=== PATIENT | female | born 1985 | race African-American/Black ===

== ENCOUNTER 2019-11-14 14:56 | Inpatient (IN) | payer OTHER ==
[2019-11-14] MEDS ORDERED: OXYTOCIN 30 UNITS in 0.9% NS 30 UNIT/500 ML INFUS.BAG IVPB SCH (15:45)
--- NOTE | 2019-11-14 15:45 | HP ---
Past Medical History - Primary Care Physician PCP:: Magaly Aldana - Admission Chief Complaint: contractions History of Present Illness: pt. presented yesterday to L&D for labor eval (contractions). not in active labor and d/c to . sent by MD today for augmentation. pt. states still some uc's. spotting 2 d ago. no rom. no lesions or prodrome (hx hsv). History Source: Patient Limitations to Obtaining History: No Limitations - Past Surgical History Hx Myomectomy: No Hx Transabdominal Cerclage: No - Smoking History Smoking history: Never smoked - Alcohol/Substance Use Hx Alcohol Use: Yes (SOCIAL) Home Medications - Allergies Allergies/Adverse Reactions: Allergies Allergy/AdvReac Type Severity Reaction Status Date / Time nut - unspecified Allergy Intermediate Itching Verified 11/14/19 16:35 peanut Allergy Intermediate Itching Verified 11/14/19 16:35 No Known Drug Allergies Allergy Verified 11/14/19 16:35 - Home Medications Home Medications: Ambulatory Orders Vitamins (Sjr) - 1 tab PO DAILY 11/14/19 Review of Systems Findings/Remarks: as per HPI Physical Exam - Maternity Constitutional: Yes: Well Nourished, No Distress Cardiovascular: Yes: WNL Lungs: Clear to auscultation - Abdominal Exam/OB Number of Fetuses: Single Presentation: Vertex (exam, etc per PMD) Contractions: Yes Regularity: Irregular Intensity: Mild Monitor Mode: External Heart Rate (range): 135 Category: I Accelerations: Uniform Decelerations: None - Vaginal Exam/OB Dilatation (cm): 2-3 Presentation: Vertex/Position - Labs Lab Results: A pos vdrl nr hbsag nr hiv neg gc neg chl neg rubella immune gbs neg Hemorrhage Risk Assessment - Risk Factors Medium Risk Factors: Yes: None High Risk Factors: Yes: None Risk Score: 1 Risk Level: Medium Risk Assessment/Plan called by Dr. Aldana to cover Pitocin for this P1 iup at 39 weeks presents for admission per PMD to augment labor w Pitocin per H&P hx hsv, pt denies any lesions or prodromal symptoms currently. efw 3332g on sono 10/23. ant. placenta (pt. states was low lying earlier this preg but resolved) close monitoring on L&D while on pitocin analgesia prn mgmt per Dr. Aldana
[2019-11-14] MEDS: DEXTROSE 5%-LACTATED RINGERS 1,000 ML IV SCH (16:00)
[2019-11-14] MEDS ORDERED: OXYTOCIN 30 UNITS in 0.9% NS 30 UNIT/500 ML INFUS.BAG IVPB ONE (16:10)
[2019-11-14] MEDS ORDERED: CITRIC ACID/SODIUM CITRATE 30 ML UNIT-DOSE CUP PO ONE (16:25)
--- NOTE | 2019-11-14 16:25 | PN ---
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
[2019-11-14 16:31] LABS: BASO % 0.3 % (0-2.0); EOS % 0.1 % (0-4.5); HEMOGLOBIN 12.5 GM/dL (10.7-15.3); LYMPH % 11.2 % (8-40); MCH 27.5 pg (25.7-33.7); MCHC 33.7 g/dl (32.0-36.0); MEAN CELL VOLUME 81.5 fl (80-96); MONO % 5.3 % (3.8-10.2); NEUT % 83.1 % (42.8-82.8); PLATELET COUNT 269 K/MM3 (134-434); RBC 4.54 M/mm3 (3.60-5.2); RDW 15.5 % (11.6-15.6)
[2019-11-14] MEDS ORDERED: BUTORPHANOL TARTRATE 2 MG/ML VIAL IVPB ONE (16:34)
[2019-11-14] MEDS ORDERED: PROMETHAZINE HCL 25 MG/1 ML VIAL IVPB ONE (16:34)
[2019-11-14 16:40] LABS: PROTHROMBIN TIME (PATIENT) 11.8 SEC (9.7-13.0)
--- OUTSIDE RECORDS SUMMARY | 2019-11-14 16:42 | XMS ---
:1985 Author Organization [facility] Care Team Providers Name Role Phone BLANCO, AGUSTIN MD Unavailable Unavailable BLANCO, AGUSTIN MD Unavailable Unavailable BLANCO, AGUSTIN MD Unavailable Unavailable BLANCO, AGUSTIN MD Unavailable Unavailable BLANCO, AGUSTIN MD Unavailable Unavailable BLANCO, AGUSTIN MD Unavailable Unavailable BLANCO, AGUSTIN MD Unavailable Unavailable BLANCO, AGUSTIN MD Unavailable Unavailable BLANCO, AGUSTIN MD Unavailable Unavailable BLANCO, AGUSTIN MD Unavailable Unavailable BLANCO, AGUSTIN MD Unavailable Unavailable BLANCO, AGUSTIN MD Unavailable Unavailable BLANCO, AGUSTIN MD Unavailable Unavailable BLANCO, AGUSTIN MD Unavailable Unavailable BLANCO, AGUSTIN MD Unavailable Unavailable BLANCO, AGUSTIN MD Unavailable Unavailable BLANCO, AGUSTIN MD Unavailable Unavailable BLANCO, AGUSTIN MD Unavailable Unavailable BLANCO, AGUSTIN MD Unavailable Unavailable BLANCO, AGSUTIN MD Unavailable Unavailable BLANCO, AGUSTIN MD Unavailable Unavailable BLANCO, AGUSTIN MD Unavailable Unavailable BLANCO, AGUSTIN MD Unavailable Unavailable BLANCO, AGUSTIN MD Unavailable Unavailable JHONNY DEMARCO Unavailable Unavailable JORDI CONNELLY Unavailable Unavailable Re-disclosure Warning The records that you are about to access may contain information from federally- assisted alcohol or drug abuse programs. If such information is present, then the following federally mandated warning applies: This information has been disclosed to you from records protected by federal confidentiality rules (42 CFR part 2). The federal rules prohibit you from making any further disclosure of this information unless further disclosure is expressly permitted by the written consent of the person to whom it pertains or as otherwise permitted by 42 CFR part 2. A general authorization for the release of medical or other information is NOT sufficient for this purpose. The Federal rules restrict any use of the information to criminally investigate or prosecute any alcohol or drug abuse patient.The records that you are about to access may contain highly sensitive health information, the redisclosure of which is protected by Article 27-F of the [facility] Public Health law. If you continue you may haveaccess to information: Regarding HIV / AIDS; Provided by facilities licensed or operated by the [facility] Office of Mental Health; or Provided by the [facility] Office for People With Developmental Disabilities. If such information is present, then the following [facility] mandated warning applies: This information has been disclosed to you from confidential records which are protected by state law. State law prohibits you from making any further disclosure of this information without the specific written consent of the person to whom it pertains, or as otherwise permitted by law. Any unauthorized further disclosure in violation of state law may result in a fine or mcfp sentence or both. A general authorization for the release of medical or other information is NOT sufficient authorization for further disclosure. Allergies and Adverse Reactions Type Description Substance Reaction Status Data Source(s ) Food allergy nut - unspecified nut - unspecified UNKNOWN [facility] Encounters Encounter Providers Location Date Indications Data Source(s ) Outpatient Attender: AGUSTIN 09/25/2019 LABOR EVAL [facility] BLANCO RICE 10:40:00 AM Hospital EDT LABOR EVAL Emergency Attender: NILAM 11/21[facility]2018 [facility]40[facility] [employer] CHEST PAIN Emergency Attender: MARICEL, 07/14/2018 [facility], 08[facility]00 PM [facility]T [facility] [employer] ABDOMINAL PAIN, Insurance Providers Payer name Policy type Policy ID Covered Covered libertarian's Policy P arabella / Coverage libertarian ID relationship to Main Inf ormation type main [facility] [id number] SP [id number] CARE HMO/POS/EPO [place] [id number] PT [id number] HEALTHCARE HMO Problems, Conditions, and Diagnoses Code Display Name Description Problem Type Effective Data Sour ce(s) Dates Z33.1 state, Z33.1 Diagnosis 09/25/2019 [facility] incidental 10:40:00 AM Hospital EDT Z91.018 Allergy to other ALLERGY TO OTHER Diagnosis 11/21/2018 [facility] [employer] 07:40:00 PM [facility] EDT [facility] [employer] R07.2 Precordial pain PRECORDIAL PAIN Diagnosis 11/21/2018 [place] 07:40:00 PM [facility] EDT [facility] K52.9 Noninfective NONINFECTIVE Diagnosis 07/14/2018 [facility] r gastroenteritis and GASTROENTERITIS AND 08:14:0 0 PM [facility] colitis, COLITIS, EDT Care unspecified UNSPECIFIED Corporation R19.7 Diarrhea, DIARRHEA, Diagnosis 07/14/2018 [place] unspecified UNSPECIFIED 08:14:00 PM Pending sale to [facility] EDT [facility] Results ID Date Data Source [id number] 08/22/2019 08:45:00 AM EDT [facility] Name Value Range Interpretation Description Data Sup porting Code Source(s) Document(s ) SARS [facility] coronavirus 2 RNA [Presence] in Respiratory specimen by EVIN with probe detection This lab was ordered by [facility] and reported by [facility]. Procedure
[2019-11-14 16:43] LABS: ACTIVATED PTT 26.3 SECONDS (25.2-36.5)
[2019-11-14 16:53] VITALS: BMI 29.5
[2019-11-14 16:57] LABS: BLOOD UREA NITROGEN 5.8 mg/dL (7-18); CALCIUM 9.1 mg/dL (8.5-10.1); CREATININE 0.7 mg/dL (0.55-1.3); POTASSIUM 3.8 mmol/L (3.5-5.1)
[2019-11-14] MEDS ORDERED: BUTORPHANOL TARTRATE 2 MG/ML VIAL ONE (19:29)
[2019-11-14] MEDS ORDERED: PROMETHAZINE HCL 25 MG/1 ML VIAL ONE (19:29)
[2019-11-14] MEDS ORDERED: OXYTOCIN 20 UNITS in 0.9% NS 20 UNIT/1,000 ML INFUS.BAG IV ONE ×2 (21:16→22:50)
[2019-11-14] MEDS ORDERED: LIDOCAINE HCL 1% PRESERVATIVE FREE - 30ML VIAL ONE (21:16)
--- NOTE | 2019-11-14 21:24 | PN ---
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
[2019-11-14] MEDS ORDERED: METHYLERGONOVINE MALEATE 0.2 MG/1 ML AMP IM PRN (22:02)
[2019-11-14] MEDS ORDERED: BISACODYL 10 MG SUPP.RECT RC PRN (22:02)
--- NOTE | 2019-11-14 22:02 | PN ---
Delivery - Delivery Vaginal Delivery: No Problems Type of Anesthesia: Local Episiotomy/Laceration: Right Mediolateral EBL (cc): 400 Delivery, Single - Stages of Labor Placenta: Yes: Spontaneous - Condition of Top Dyeing Machine Tender/[place] Machine Feeder Present: No Infant Gender: Male Position: OA - Feeding Plan Initial Plan: Elected not to breastfeed exclusively throughout hospitalization Remarks - Remarks Remarks: RML performed Baby boy CAN x 1 loose Cord gases and blood collected Placenta and memb complete 2-0 chromic used to repair the episiotomy
[2019-11-14] MEDS ORDERED: WITCH HAZEL 50% (TUCKS) 40 PAD/JAR PAD TP SCH (22:15)
[2019-11-14] MEDS ORDERED: OXYTOCIN 20 UNITS in 0.9% NS 20 UNIT/1,000 ML INFUS.BAG IV SCH (22:15)
[2019-11-14] MEDS ORDERED: BENZOCAINE 28 GM HEMORRHOIDAL OINTMENT TP SCH (22:15)
[2019-11-14 23:04] LABS: CORD BASE EXCESS -5.4 mmol/L (0-2); CORD HCO3 20.9 mmHg (20-29); CORD PCO2 43.5 mmHg (30-78); CORD pH 7.299 (7.14-7.44)
[2019-11-14 23:05] LABS: CORD BASE EXCESS -8.4 mmol/L (0-2); CORD HCO3 20.1 mmHg (20-29); CORD PCO2 53.4 mmHg (30-78); CORD pH 7.193 (7.14-7.44)
[2019-11-15] MEDS: IBUPROFEN 600 MG TABLET (FP) PO PRN ×2 (02:47→19:24)
[2019-11-15] MEDS: ACETAMINOPHEN 325 MG TABLET (FP) PO PRN ×2 (02:47→19:25)
[2019-11-15] MEDS: BENZOCAINE 20% 57 GM BOTTLE TP SCH (02:48)
[2019-11-15 08:41] LABS: BASO % 0.2 % (0-2.0); EOS % 0.1 % (0-4.5); HEMATOCRIT 34.1 % (32.4-45.2); HEMOGLOBIN 11.5 GM/dL (10.7-15.3); LYMPH % 10.4 % (8-40); MCH 27.7 pg (25.7-33.7); MCHC 33.7 g/dl (32.0-36.0); MEAN CELL VOLUME 82.2 fl (80-96); MEAN PLT VOLUME 8.7 fl (7.5-11.1); MONO % 5.4 % (3.8-10.2); NEUT % 83.9 % (42.8-82.8); PLATELET COUNT 241 K/MM3 (134-434); RBC 4.15 M/mm3 (3.60-5.2); RDW 15.5 % (11.6-15.6); WHITE BLOOD COUNT 16.4 K/mm3 (4.0-10.0)
--- NOTE | 2019-11-15 17:55 | PN ---
Post Progress Note Type of Delivery: Vital Signs: Vital Signs Temperature 97.0 F L 11/15/19 14:00 Pulse Rate 97 H 11/15/19 14:00 Respiratory Rate 20 11/15/19 14:00 Blood Pressure 107/62 11/15/19 14:00 O2 Sat by Pulse Oximetry (%) 99 11/15/19 14:00 Breast Exam: Yes: Soft Uterus: Yes: Fundus Firm, Fundus below umbilicus Abdomen/GI: Yes: Abdomen soft Lochia: Yes: Rubra Lochia, amount: Small Perineum: Yes: Episiotomy Activity: Ambulating - Labs Labs: CBC WBC 16.4 K/mm3 (4.0-10.0) H 11/15/19 07:45 RBC 4.15 M/mm3 (3.60-5.2) 11/15/19 07:45 Hgb 11.5 GM/dL (10.7-15.3) 11/15/19 07:45 Hct 34.1 % (32.4-45.2) 11/15/19 07:45 MCV 82.2 fl (80-96) 11/15/19 07:45 MCH 27.7 pg (25.7-33.7) 11/15/19 07:45 MCHC 33.7 g/dl (32.0-36.0) 11/15/19 07:45 RDW 15.5 % (11.6-15.6) 11/15/19 07:45 Plt Count 241 K/MM3 (134-434) 11/15/19 07:45 MPV 8.7 fl (7.5-11.1) 11/15/19 07:45 Absolute Neuts (auto) 13.8 K/mm3 (1.5-8.0) H 11/15/19 07:45 Neutrophils % 83.9 % (42.8-82.8) H 11/15/19 07:45 Lymphocytes % 10.4 % (8-40) 11/15/19 07:45 Monocytes % 5.4 % (3.8-10.2) 11/15/19 07:45 Eosinophils % 0.1 % (0-4.5) 11/15/19 07:45 Basophils % 0.2 % (0-2.0) 11/15/19 07:45 Nucleated RBC % 0 % (0-0) 11/15/19 07:45 Problem List - Problems (1) (normal spontaneous vaginal delivery) Code(s): O80 - ENCOUNTER FOR FULL-TERM UNCOMPLICATED DELIVERY (2) with 38 completed weeks gestation Code(s): Z3A.38 - 38 WEEKS GESTATION OF Assessment/Plan Ambulate Breast feeding
--- NOTE | 2019-11-15 18:00 | DS ---
Physical Exam-CARDIAC TECHNICIAN Vital Signs: Vital Signs Temperature 97.0 F L 11/15/19 14:00 Pulse Rate 97 H 11/15/19 14:00 Respiratory Rate 20 11/15/19 14:00 Blood Pressure 107/62 11/15/19 14:00 O2 Sat by Pulse Oximetry (%) 99 11/15/19 14:00 Constitutional: Yes: Well Nourished, No Distress Eyes: Yes: WNL HENT: Yes: WNL Neck: Yes: WNL Cardiovascular: Yes: WNL Respiratory: Yes: WNL Gastrointestinal: Yes: WNL ...Rectal Exam: Yes: WNL Renal/: Yes: WNL Pelvis: Yes: WNL ....Post : Yes: Uterus firm, Slight lochia rubra Breast(s): Yes: WNL Edema: No Integumentary: Yes: WNL Neurological: Yes: WNL ...Motor Strength: WNL Psychiatric: Yes: WNL Labs: CBC, BMP 11/15/19 07:45 11/14/19 16:00 Delivery - Delivery Vaginal Delivery: No Problems, Spontaneous Type of Anesthesia: Local Episiotomy/Laceration: Right Mediolateral EBL (cc): 400 Delivery, Single - Stages of Labor Date 1st Stage Initiatied: 11/14/19 Time 1st Stage Initiated: 19:35 Date 2nd Stage Initiated: 11/14/19 Time 2nd Stage Initiated: 21:15 Date of Delivery: 11/14/19 Time of Delivery: 21:33 Time Placenta Delivered: 21:48 Placenta: Yes: Spontaneous - Condition of Infant Bakery Worker Conveyor Line/Foxing Cutting Machine Operator Present: No Infant Gender: Male Weight: 3.714 kg Position: OA Total Hours ROM (Hrs/Mins): 18 MINUTES - 1 Minute Total Score: 9 5 Minutes Total Score: 9 - [place] Feeding Plan Initial Plan: Elected not to breastfeed exclusively throughout hospitalization Discharge Summary Problems reviewed: Yes Reason For Visit: INDUCTION OF LABOR Current Active Problems (normal spontaneous vaginal delivery) (Acute) Hospital Course: good Plan of Treatment: d/c home tomorrow Condition: Good - Instructions Diet, Activity, Other Instructions: as tolerated regular diet f/u in 4-6 weeks Disposition: HOME - Home Medications Comprehensive Discharge Medication List: Ambulatory Orders Vitamins (Sjr) - 1 tab PO DAILY 11/14/19
[2019-11-15] MEDS: DEXTROSE 5%-LACTATED RINGERS 1,000 ML IV SCH (22:41)
[2019-11-16] MEDS: ACETAMINOPHEN 325 MG TABLET (FP) PO PRN (09:15)
[2019-11-16] MEDS: IBUPROFEN 600 MG TABLET (FP) PO PRN (09:15)
[2019-11-16] MEDS: BENZOCAINE 20% 57 GM BOTTLE TP SCH (09:26)
[2019-11-16 12:04] VITALS: BP 103/70; PULSE 71; TEMP 97.8
== END 2019-11-16 12:31 | disposition home or self-care (01) | DRG 807 ==
LOC: JLDR 14:56 → J3W 11-15 00:22
PROVIDERS: ADMIT Obstetrics & Gynecology; ATTEND Obstetrics & Gynecology
PROC: 10E0XZZ Delivery of Products of Conception, External Approach (ICD-10-PCS; principal; 2019-11-14)
DX: O69.81X0 Labor and delivery complicated by cord around neck, without compression, not applicable or unspecified (principal); Z37.0 Single live birth; O70.9 Perineal laceration during delivery, unspecified; Z3A.38 38 weeks gestation of pregnancy; Z86.19 Personal history of other infectious and parasitic diseases; Z91.010 Allergy to peanuts; Z91.018 Allergy to other foods
CPT/HCPCS: 36415; 36600; 59409; 72170-TC-FY; 80048; 82803; 85025; 85610; 85730; 86780; 86850; 86900; 86901; 87389; U0003